=== PATIENT | male | born 1985 | race Caucasian/White ===

== ENCOUNTER → 2016-12-19 | Outpatient (CLI) | payer BC ==
--- NOTE | 2016-12-19 19:59 | CONS ---
CONSULTATION REASON FOR CONSULTATION: Sleep apnea. This is a 31-year-old male patient who was undergoing routine health screening at [facility], and he was referred to me for sleep evaluation with concerns about him having obstructive sleep apnea. Apparently the patient reported having snoring and witnessed apneas, and this raised quite a bit of concern regarding his ability to function and drive during the day. For that reason, he was referred to me. He typically goes to bed around 10:30 pm to 11:00 pm, and he wakes up between 4:00 am and 6:00 am in the morning, depending on his job requirements. He averages around 5 hours of sleep per day. He describes his sleep quality to be poor. He has frequent arousals, at times to urinate. Denies waking up gasping or choking. No grinding of the teeth. No sleepwalking or sleeptalking. No anxiety. No tremors. No nocturnal heartburn or chest pain. He wakes up, however, tired, and he feels sleepy during the day. He does not fall asleep while driving. He drives 6 miles at most; he works for an [employer] company. No obesity. No family history of sleep apnea. PAST MEDICAL HISTORY: Negative. PAST SURGICAL HISTORY: 1. 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 2. Repair of a facial laceration. DRUG ALLERGIES: NOT KNOWN. MEDICATIONS: None. SOCIAL HISTORY: Smokes 1 pack of cigarettes a day. Drinks 2 beers a day. No history of substance abuse or IV drugs. FAMILY HISTORY: Negative for sleep apnea. REVIEW OF SYSTEMS: Twelve-point review of system was done. Positive findings were all mentioned above in the history of present illness. PHYSICAL EXAMINATION: BP is 130/83, pulse 80, respirations 16, temperature 98.0, saturation 97% on room air. Weight is 169, height 69 inches. Neck size 15-1/4. BMI 24.9. Rice score is 13. GENERAL APPEARANCE: Calm, comfortable. HEENT: Negative for JVD. There is no goiter or neck masses. Mallampati class 1. LUNGS: Clear to auscultation. Hears sounds are regular rate and rhythm. Normal S1, S2. ABDOMEN: Soft, non-tender. No organomegaly. EXTREMITIES: No edema. No cyanosis or clubbing. IMPRESSION: 1. Snoring with questionable witnessed apneas and occasional sleep paralysis. The patient is being investigated for sleep apnea. 2. Chronic fatigue and limited sleepiness with an Rice score of 13. PLAN: 1. Proceed with a screening polysomnogram. 2. Clearance will depend on the results of the sleep study. REYNOLD / IJN: [id number] /
== END ==
LOC: SLEEP 14:03
PROVIDERS: ATTEND Internal Medicine Critical Care Medicine
DX: G47.30 Sleep apnea, unspecified (principal); R53.82 Chronic fatigue, unspecified; F17.200 Nicotine dependence, unspecified, uncomplicated